=== PATIENT | male | born 1945 | race Caucasian/White ===

== ENCOUNTER → 2024-01-10 | Outpatient (CLI) | payer MEDICARE, SELFPAY ==
[2024-01-10 16:40] LABS: Absolute Lymphocyte Count 2.73 X10^3/uL (0.83-4.51); Absolute Neutrophil Count 5.3 X10^3/uL (2.0-7.7); Basophil# 0.06 X10^3/uL; Basophil% 0.6 % (0-1); Eosinophil# 0.71 X10^3/uL; Eosinophils% 7.4 % (0-5); Hematocrit 41.3 % (40-54); Lymphocyte # 2.73 X10^3/ul (0.83-4.51); Lymphocyte % 28.4 % (19-41); Mean Corp Hgb Conc 31.5 g/dL (32-36); Mean Platelet Vol. 9.6 fl (6.2-12.0); Monocyte% 8.3 % (0-10); NRBC Flagged by Analyzer 0 % (0-5); Neutrophil # 5.27 X10^3/uL (2.7-7.7); Platelet Count 297 K/mm3 (150-450); RBC Distribution Width CV 12.9 % (11.6-14.6); RBC Distribution Width SD 43.4 fl (35.1-43.9); Red Blood Count 4.49 M/mm3 (4.6-6.2); White Blood Count 9.6 K/mm3 (4.4-11.0)
[2024-01-10 16:56] LABS: AST(SGOT) 18 U/L (15-37); Alanine Aminotransfer ALT/SGPT 34 U/L (16-61); Albumin, Serum 3.5 g/dL (3.2-5.0); Alkaline Phosphatase 65 U/L (45-117); Anion Gap 4 (5-15); BUN 18 mg/dL (7-18); BUN/Creat Ratio 21.8 RATIO (10-20); Calcium,Total 9.5 mg/dL (8.5-10.1); Chloride 104 mmol/L (98-107); Cholesterol 119 mg/dL (200); Creatinine, Serum 0.82 mg/dL (0.70-1.30); EST Glomerular Filtration Rate 96 mL/min (>60); Est Glom Filt Rate - Afr Amer 116 mL/min (>60); Globulin 3.4 g/dL (2.2-4.2); Glucose 120 mg/dL (74-106); High Density Lipoprotein 44 mg/dL; Protein, Total 6.9 g/dL (6.4-8.2); Sodium Level 139 mmol/L (136-145); Triglycerides 203 mg/dL; Very Low Density Lipoprotein 41 mg/dL (5-40)
== END | disposition home or self-care (01) ==
PROVIDERS: PCP Internal Medicine; Referring Provider Internal Medicine; Visit Provider Internal Medicine
DX: I10 Essential (primary) hypertension (principal)
CPT/HCPCS: 36415; 80053; 80061; 85025

== ENCOUNTER → 2024-02-25 | Outpatient (CLI) | payer MEDICARE, SELFPAY ==
[2024-02-25 13:23] LABS: PSA,Total- Diagnostic 0.35 ng/mL (0.0-4.0)
== END | disposition home or self-care (01) ==
LOC: BIMLAB 09:38
PROVIDERS: PCP Internal Medicine
DX: C61 Malignant neoplasm of prostate (principal)
CPT/HCPCS: 36415; 84153

== ENCOUNTER 2024-02-28 22:02 | Inpatient (IN) | payer MEDICARE, SELFPAY ==
[2024-02-28 22:03] VITALS: BP 146/67; PULSE 87; RESP 18; TEMP 37.1; O2SAT 94; BMI 30.4
--- NOTE | 2024-02-28 22:20 | US_ITS ---
EXAM: US ABDOMEN LIMITED, RIGHT UPPER QUADRANT CLINICAL INDICATION: PAIN, n/v TECHNIQUE: Real-time ultrasound of the right upper quadrant with image documentation. COMPARISON: No relevant prior studies available. FINDINGS: LIVER: Increased echogenicity of the hepatic parenchyma. No focal lesions identified. No intrahepatic biliary ductal dilation. GALLBLADDER: Multiple shadowing stones in the gallbladder, with gallbladder distention up to 11.3 cm and a positive sonographic Brown sign. Trace amount of pericholecystic fluid. No gallbladder wall thickening is demonstrated. COMMON BILE DUCT: 7 mm. The proximal common bile duct is within normal limits for the patient''s age. PANCREAS: The pancreas is partially obscured by bowel gas. RIGHT KIDNEY: 7 mm echogenic shadowing focus in the right kidney likely indicating a nonobstructing stone. Simple cyst in the right kidney measuring 2.3 cm. No follow-up imaging is recommended per consensus recommendations based on imaging criteria. US/Gallbladder IMPRESSION: Multiple shadowing stones in the gallbladder, with gallbladder distention up to 11.3 cm and a positive sonographic Brown sign. Trace amount of pericholecystic fluid. Findings are concerning for acute cholecystitis. Electronically Signed: Syed Payton MD at 0:03 EST ,
--- NOTE | 2024-02-28 22:21 | EDS_ITS ---
HPI HPI - GI History of Present Illness Chief Complaint: Abd Pain Informant: patient and family Narrative Narrative: 78-year-old male has been having abdominal pain since 24 hours ago or a little more, said very poor appetite as a result, some occasional nausea/vomiting without hematemesis or coffee-ground emesis. Small bowel movements when he has them and they are unremarkable otherwise. No blood or melena. No fevers or chills. No chest discomfort. The pain radiates into his right mid back at times. He saw his doctor today and had blood work and a KUB and some Zofran but he is very uncomfortable. Pain was the first symptom. He has had no history of abdominal surgeries. [facility] Medical History DDD (degenerative disc disease) BPH (benign prostatic hyperplasia) Vitamin B12 deficiency Chronic diastolic heart failure History of prostate cancer Type 2 diabetes mellitus Numbness and tingling in right hand CAD (coronary artery disease) History of prostate disorder High cholesterol Hypertension Heart disease Diabetes Home Medications ?Medication ?Instructions ?Recorded ?Last Taken ?Type aspirin 81 mg chewable tablet 81 mg PO QDAY 01/10/24 Unknown History atorvastatin 40 mg tablet 80 mg PO QHS 01/10/24 Unknown History cholecalciferol (vitamin D3) 62.5 mcg PO DAILY 01/10/24 Unknown History mcg (2,500 unit) capsule clopidogrel 75 mg tablet 75 mg PO .three times/week 01/10/24 Unknown History furosemide 20 mg tablet 20 mg PO .three times/week 01/10/24 Unknown History glipizide 2.5 mg tablet 2.5 mg PO QDAY 01/10/24 Unknown History metformin 500 mg tablet 1,000 mg PO BID 01/10/24 Unknown History metoprolol succinate 25 mg 25 mg PO QDAY 01/10/24 Unknown History tablet,extended release 24 hr nitroglycerin 0.3 mg sublingual 0.3 mg sublingual Q5-15M PRN chest 01/10/24 Unknown Rx tablet pain #90 tabs potassium chloride 20 mEq 20 meq PO .three times/week 01/10/24 Unknown History tablet,extended release tamsulosin 0.4 mg capsule 0.4 mg PO QHS 01/10/24 Unknown History benazepril 5 mg tablet 5 mg PO QDAY #90 tabs 02/25/24 Unknown Rx ondansetron 4 mg disintegrating 4 mg PO Q6H #10 tabs 02/28/24 Unknown Rx tablet Allergy/AdvReac Type Severity Reaction Status Date / Time No Known Allergies Allergy Verified 02/28/24 22:03 Surgical History History of intravascular stent placement Social History household members: spouse housing: house Smoking Status: Never smoker alcohol intake: former substance use type: does not use what type of physical activity do you participate in: other details: ACTIVE AT HOME ON FARM seatbelt use: always do you feel safe at home: Yes ROS ROS ED Constitutional Constitutional ED: Reports malaise; Denies chills or fever(s) Eyes Eyes: Denies change in vision or diplopia ENT ENT ED: Denies rhinorrhea or sore throat Cardiovascular Cardiovascular: Denies chest pain or palpitations Respiratory/Chest Respiratory/Chest: Denies cough or dyspnea Gastrointestinal Gastrointestinal: Reports abdominal pain, nausea and vomiting; Denies diarrhea or melena Genitourinary Genitourinary ED: Denies dysuria or hematuria Musculoskeletal Musculoskeletal: Reports back pain; Denies neck pain Integumentary Denies abscess or rash Neurologic Neurologic: Denies headache(s), paresthesias or weakness Psychiatric Psychiatric: Denies anxiety or suicidal thoughts EXAM Physical Exam Const Vital Signs: 02/28/24 22:03 Temperature 98.8 F Temperature Source Temporal Pulse Rate 87 Respiratory Rate 18 Blood Pressure 146/67 H Blood Pressure Mean 93 Pulse Ox 94 Oxygen Delivery Method Room Air Positive well nourished and well developed General Appearance ED: well developed and NAD HEENT Reports moist mucous membranes normocephalic and atraumatic Eyes PERRL and EOMs intact bilaterally Neck full ROM and supple Resp normal respiratory effort and clear to auscultation bilaterally Cardio regular rate, regular rhythm and no murmurs GI non-distended GI Narrative: Very tender throughout the right upper quadrant with a positive Brown. Tenderness decreases as I get further away from the right upper quadrant, the left lower quadrant is nontender. He does not have a surgical abdomen. Auscultation: normoactive bowel sounds Palpation: soft Back/Spine no CVA tenderness General Back: other FROM Extremity normal to inspection General Extremety ED: Negative for edema, pulses abnormal or tenderness General Extremity: Negative for edema or pulses abnormal Neuro oriented x3, CN's II-XII intact bilaterally and no sensory deficits noted Sensorium / Orientation: awake and alert Motor Exam: strength 5/5 throughout Psych mental status grossly normal and thought process normal Skin no rashes or lesions noted and no wounds MDM MDM MDM Narrative Medical decision making narrative: Patient had outpatient labs earlier today, less than 12 hours ago. His total bilirubin is elevated compared with his baseline couple months ago, and he has a significant leukocytosis over 22. The rest of his liver enzymes are unremarkable. I am adding a lipase since it was not done but I do not think those need to be emergently repeated. This is highly suspicious for acute cholecystitis so I am obtaining an ultrasound while we treat his symptoms. Patient is doing little better after IV fluids, Zofran, morphine. I reviewed the ultrasound images and the results which I agree with, it is consistent with calculus cholecystitis. Started on Zosyn. Discussed with surgery. Patient clinically and hemodynamically stable right now does not require ICU. History & Record Review Additional record(s) reviewed:: Prior labs Lab Data Attestation: I reviewed the patient's lab results. Labs: Laboratory Results - last 24 hr 02/28/24 22:33 Lipase 13 Radiography Diagnostic Testing: Clinical Impression(s) from Imaging Studies Gallbladder Ultrasound 02/28/24 22:20 IMPRESSION: Multiple shadowing stones in the gallbladder, with gallbladder distention up to 11.3 cm and a positive sonographic Brown sign. Trace amount of pericholecystic fluid. Findings are concerning for acute cholecystitis. Electronically Signed: Syed Payton MD at 0:03 EST , Management Discussion w/another healthcare provider: [employer] (dr. iniguez, gen surgery) Discharge Plan Dx/Rx/DC Orders Clinical Impression: Calculus of gallbladder with acute cholecystitis Disposition Disposition: [facility] ([facility] Care [facility]
[2024-02-28 22:56] LABS: Lipase 13 U/L (13-75)
[2024-02-28] MEDS: Morphine 4 MG/ML Syringe IV (23:40)
[2024-02-28] MEDS: Ondansetron 4 MG/2 ML Vial IV (23:40)
[2024-02-29] VITALS (19 sets, daily range): BP systolic 112–145; BP diastolic 54–111; PULSE 68–90; RESP 16–20; TEMP 36.7–38.1; O2SAT 91–98; BMI 30.2
[2024-02-29] MEDS: Piperacil/Tazobactam 3.375 GM in 0.9% Normal Saline (50mL MB+) 50 ML IV ×4 (01:19→22:22)
[2024-02-29] MEDS: fentaNYL 100 MCG/2 ML Ampul 25 MCG IV (01:19)
[2024-02-29] MEDS: 0.9% Normal Saline (1000mL) 1,000 ML 100 ML IV ×2 (02:42→13:25)
[2024-02-29] MEDS: 0.9% Saline Lock 10 ML Syringe IV ×2 (02:43→19:18)
[2024-02-29] MEDS: Morphine 4 MG/ML Syringe IV (02:43)
[2024-02-29 03:09] LABS: Bedside Glucose 161 mg/dL (74-106)
--- NOTE | 2024-02-29 05:00 | EKG12_ITS ---
Test Reason : AM EKG Blood Pressure : */* mmHG Vent. Rate : 93 BPM Atrial Rate : 93 BPM P-R Int : 190 ms QRS Dur : 148 ms QT Int : 398 ms P-R-T Axes : 32 -42 99 degrees QTcB Int : 494 ms Normal sinus rhythm Left axis deviation Left bundle branch block Abnormal ECG No previous ECGs available Confirmed by RAJAT MONTANO, RUPINDER ([id number]), editor managing newspaper SHEREEN NAZARIO ([id number]) on 02/29/2024 9:57:15 AM Referred By: BARRY Confirmed By: RUPINDER EALR MD
[2024-02-29 05:57] LABS: Hematocrit 37.4 % (40-54); Hemoglobin 12.4 g/dL (13.0-16.5); Mean Corp Hgb Conc 33.2 g/dL (32-36); Mean Corpuscular Hgb 29.4 pg (27.0-32.0); Mean Corpuscular Volume 88.6 fL (80-94); Mean Platelet Vol. 9.1 fl (6.2-12.0); POSITIVE DIFFERENTIAL YES; POSITIVE MORPHOLOGY YES; Platelet Count 245 K/mm3 (150-450); RBC Distribution Width CV 12.7 % (11.6-14.6); RBC Distribution Width SD 40.7 fl (35.1-43.9); Red Blood Count 4.22 M/mm3 (4.6-6.2); White Blood Count 22.6 K/mm3 (4.4-11.0)
[2024-02-29 06:47] LABS: Differential Indicated MANUAL DIFF
[2024-02-29] MEDS: 0.9% Normal Saline (100mL Bag) 100 ML 15 ML IV (06:48)
[2024-02-29 06:49] LABS: Lymphocyte 7 % (19-41); Metamyelocyte 3 % (0-1); Monocyte 6 % (0-10); Neutrophil-Band 5 % (0-5); Neutrophil-Segmented 79 % (47-70); Total Cells Counted 100 (MANUAL DIFF)
[2024-02-29 06:50] LABS: Anisocytosis 1+; Macrocytosis 1+; Platelet Estimate ADEQUATE (ADEQ)
[2024-02-29 06:51] LABS: Absolute Lymphocyte Count 1.59 X10^3/uL (0.83-4.51); Scan Smear per Review Criteria MANUAL DIFF
[2024-02-29 06:54] LABS: Anion Gap 6 (5-15); BUN 12 mg/dL (7-18); BUN/Creat Ratio 15.3 RATIO (10-20); Calcium,Total 8.6 mg/dL (8.5-10.1); Chloride 102 mmol/L (98-107); Creatinine, Serum 0.79 mg/dL (0.70-1.30); EST Glomerular Filtration Rate 101 mL/min (>60); Est Glom Filt Rate - Afr Amer 122 mL/min (>60); Estimated Creatinine Clearance 86.88 ml/min; Glucose 137 mg/dL (74-106); Potassium 3.5 mmol/L (3.5-5.1); Sodium Level 136 mmol/L (136-145)
[2024-02-29 07:51] LABS: Hemoglobin A1c 6.3 % (3.8-5.6)
--- NOTE | 2024-02-29 09:40 | GALL_PTH ---
PATIENT: LAILA MCMANUS LOC: [facility] U#:[id number] AGE/SX: 78/M ROOM: NH316 RE02/29/[address]: Dr. Heladio Sears MD : 1945 BED: 1 DIS: 03/02/2024 SPEC #: [id number] RECD: 03/03/24 08:53 STATUS: ESTIVEN TORRES #: [id number] CAMILA: 02/29/24 09:[address]: Heladio Sears DEPT: SURGICAL PATHOLOGY RECD BY: Steffayn Wesley ENTERED: 03/03/24 12:45 SP TYPE: JANELLE VELAZQUEZ DR: Dr. Lorie Guzmán MD Tissues: Gallbladder, NOS Procedures: Surgery Specimen Level III HEADER OPERATION: Laparoscopic cholecystectomy with intraoperative cholangiogram PRE-OP DIAGNOSIS: Calculus of gallbladder with acute cholecystitis TISSUE SUBMITTED: Gallbladder MICROSCOPIC DIAGNOSIS Gallbladder, cholecystectomy: Acute and Chronic ulcerated and hemorrhagic cholecystitis and cholelithiasis. 03/04/2024 MICROSCOPIC DESCRIPTION Slides are reviewed. GROSS DESCRIPTION Received is one container labeled with the patient's name and designated gallbladder. The specimen consists of a gallbladder measuring 10 cm in length and up to 5.5 cm in diameter. The external surface is pink-garcia, smooth and glistening for the most part. Focally it is granular, hemorrhagic and contains cautery artifact. The gallbladder contains purulent and hemorrhagic bile and multiple black multifaced stones measuring in aggregate 5 x 4.5 x 1.0 cm and 0.3 to 0.6 cm in greatest dimension. The mucosa is bile-stained and without any mass lesions. The gallbladder wall measures up to 0.5 cm in thickness. [employer] sections from the gallbladder and the cystic duct are submitted in one cassette. / BALTAZAR:thee 03/03/24 TC:2 CPT: 28415
--- NOTE | 2024-02-29 10:26 | CASEMGMT ---
VINCENZO CHAUHAN Assessment: Face to Face with pt for initial transition planning/care coordination assessment. VINCENZO CHAUHAN introduced self and role at [facility], pt voices understanding and consents to assessment. Pt is A&O x4 and answers all questions appropriately at this time. Pt lying in bed in no distress with oxygen on. Care providers, pharmacy, and demographics verified/updated. Admitting Dx:cholecystitis Strata: 1 PCP:Arielle Specialists:Prudence, uro; [facility], cardio Preferred Pharmacy:[facility] Insurance:[employer] [facility] Prescription Benefit: yes LNOK:Nilam Vallejo, Living Arrangements: Pt lives with in a single story home with 2 steps to enter in the back with a rail and 3 in the front. Pt reports he is I in ADLs and denies concerns at home. Transportation: Pt drives self and denies concerns with transportation. DME:[facility] with sufficient supply of strips and lancets HHC/SNF:Has had [facility] in the past, denies SNF stays. Pt states no concerns with going home at time of dc. Pt states he is to have surgery today. Pt states no further concerns/needs. CM to follow. Advised pt to ask CM if any further question/concerns/needs arise, voices understanding. Pt Goal:Home Plan:Home Handoff given to [facility] VINCENZO CHAUHAN
--- NOTE | 2024-02-29 14:15 | NURSING ---
Pt to surgery via bed
--- NOTE | 2024-02-29 15:09 | PRE.ANES_ITS ---
ASA Classification* ASA Classification ASA Classification: 3 Assessment & Plan Anesthesia* Anesthesia Assessment Anesthesia Assessment: Discussed sedation and/or anesthesia options, risks, benefits, and alternatives with patient/parents/legal guardian/POA. Questions invited. The patient/parents/legal guardian/POA seems to understand and agrees to proceed with anesthesia plan. Reviewed the physical assessment, medical history, allergy history and patient home medications list prior to surgery/procedure/anesthetic and documented any changes. Performed airway and anesthesia risk assessments. Anesthesia Type Anesthesia Type: General History Source History Obtained from:: Patient and Chart Anesthesia Focused Assessment* Temperature: 100.5 F Pulse Rate: 88 Blood Pressure: 125/63 Respiratory Rate: 16 Pulse Ox: 94 Oxygen Delivery Method: Room Air Oxygen Flow Rate (L/min): 2 Airway Assessment Mouth opens: >3 cm Mallampati Score: I Teeth Condition: Intact Neck Range of motion (ROM): Limited ROM (Somewhat decreased extension) Focused Labs Anesthesia Preop lab: CBC WBC 22.6 K/mm3 (4.4-11.0) H 02/29/24 05:44 RBC 4.22 M/mm3 (4.6-6.2) L 02/29/24 05:44 Hgb 12.4 g/dL (13.0-16.5) L 02/29/24 05:44 Hct 37.4 % (40-54) L 02/29/24 05:44 Plt Count 245 K/mm3 (150-450) 02/29/24 05:44 CHEMISTRY Potassium 3.5 mmol/L (3.5-5.1) 02/29/24 05:44 Sodium 136 mmol/L (136-145) 02/29/24 05:44 BUN 12 mg/dL (7-18) 02/29/24 05:44 Creatinine 0.79 mg/dL (0.70-1.30) 02/29/24 05:44 Glucose 137 mg/dL (74-106) H 02/29/24 05:44 POC Glucose 161 mg/dL (74-106) H 02/29/24 02:50 COAG Pre-Assessment Diagnosis/Proposed Procedure Planned Operative Procedure(s): Laparoscopic cholecystectomy Anesthesia History Anesthesia History - director of strategic alliances: Anesthesia History - director of strategic alliances Hx Hospitalization Any Problems With Anesthesia Cholinesterase deficiency You/Your Family Experience fever (hyperthermia) with Relationship Recent Exposure to Contagious Disease Does patient have nerve stimulator Patient instructed to have device shut off --Does patient have Pacemaker or ICD? When Was Last Pacemaker Check QUESTION #4 FULL TEXT: You/Your Family Experience fever (hyperthermia) with Anesthesia Last Oral Intake Last Oral intake: Last Oral Intake NPO since Meds taken in AM with sips of water? Meds patient instructed to take am of surgery Any additional information?: Yes NPO since: 00:00 PONV PONV - director of strategic alliances: PONV - director of strategic alliances Female HX of Motion Sickness HX of N/V After Surgery Non-Smoker Duration of Surgery greater than 60 minutes Number of Risk Factors PONV Score Height & Weight Height & Weight: Anesthesia: Height & Weight Height 5 ft 10 in 02/29/24 01:56 Weight: 95.6 kg 02/29/24 01:56 Body Mass Index (BMI) 30.2 02/29/24 01:56 Respiratory Assessment Respiratory Assessment - director of strategic alliances: Respiratory Tract Infection Hx - director of strategic alliances Hx Respiratory Tract Infection Any additional information?: Yes Hx Respiratory Tract Infection: No STOP Sleep Apnea STOP Sleep Apnea - director of strategic alliances: STOP Sleep Apnea - director of strategic alliances Hx Hypertension Yes 02/29/24 01:56 Hx Sleep Apnea No 02/29/24 01:56 CPAP BIPAP Do you snore loudly (louder No 02/29/24 01:56 than talking or can be heard Do you often feel tired/ No 02/29/24 01:56 fatigued/ sleepy during daytime? Has anyone observed you stop No 02/29/24 01:56 breathing during sleep? STOP Results Negative 02/29/24 01:56 QUESTION #5 FULL TEXT : Do you snore loudly (louder than talking or can be heard through closed doors)? 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 Specify any problems Hx of Preganancy in last 3 N/A 02/29/24 01:56 Months Nurse Filling Out Transfusion ZEV7 02/29/24 01:56 & Questions: Date: 02/29/24 02/29/24 01:56 Time: 02:06 02/29/24 01:56 Patient unable to answer at this time (ie. confused, unrespo /Reproduction History /Reproductive History - director of strategic alliances: /Reproductive Hx- director of strategic alliances Hx Now Gestational Age (in weeks): EDC: Hx Hx Para Hx Section SAB Active Medications Active Medications: Current Medications Generic Name Dose Route Start Last Admin Trade Name Freq PRN Reason Stop Dose Admin Sodium Chloride 100 mls @ 15 mls/hr 02/29/24 01:57 02/29/24 06:52 IV 0 mls/hr .Q6H40M PRN Infusion Saline Flush Sodium Chloride 100 mls @ 15 mls/hr 02/29/24 01:57 IV .Q6H40M PRN Additional IVPB Infusion Sodium Chloride 1,000 mls @ 100 mls/hr 02/29/24 02:25 02/29/24 13:25 IV 02/29/24 22:24 100 mls/hr .Q10H SCOTT Administration Protocol Piperacillin Sod/Tazobactam 50 mls @ 12.5 mls/hr 02/29/24 06:00 02/29/24 13:26 Sod 3.375 gm/ Sodium Chloride IV 12.5 mls/hr Q8 SCOTT Administration Morphine Sulfate 2 - 4 mg 02/29/24 02:21 Morphine 2 Mg/Ml Syringe IV Q2H PRN PRN Pain Score 1-10 Morphine Sulfate 2 - 4 mg 02/29/24 02:35 02/29/24 02:43 Morphine 4 Mg/Ml Syringe IV 4 mg Q2H PRN PRN Administration Pain Score 1-10 Ondansetron HCl 4 mg 02/29/24 02:21 Ondansetron 4 Mg/2 Ml Vial IV Q6H PRN PRN NAUSEA Sodium Chloride 10 - 40 ml 02/29/24 01:57 02/29/24 02:43 0.9% Saline Lock 10 Ml Syringe IV 10 ml UD PRN Administration SALINE FLUSH PFSH Medical History (Updated 02/29/24 @ 15:[address] Ji Leos MD) Prostate CA DDD (degenerative disc disease) BPH (benign prostatic hyperplasia) Vitamin B12 deficiency Chronic diastolic heart failure History of prostate cancer Type 2 diabetes mellitus Numbness and tingling in right hand CAD (coronary artery disease) History of prostate disorder High cholesterol Hypertension Heart disease Diabetes Home Medications ?Medication ?Instructions ?Recorded ?Last Taken ?Type aspirin 81 mg chewable tablet 81 mg PO QDAY heart 01/10/24 02/28/24 History atorvastatin 40 mg tablet 80 mg PO QHS cholesterol 01/10/24 Unknown History cholecalciferol (vitamin D3) 62.5 2,500 mcg PO DAILY supplement 01/10/24 Unknown History mcg (2,500 unit) capsule clopidogrel 75 mg tablet 75 mg PO .three times/week blood 01/10/24 02/27/24 History thinner furosemide 20 mg tablet 20 mg PO .three times/week water 01/10/24 Unknown History pill glipizide 2.5 mg tablet 2.5 mg PO QDAY diabetes 01/10/24 Unknown History metformin 500 mg tablet 1,000 mg PO BID diabetes 01/10/24 Unknown History metoprolol succinate 25 mg 25 mg PO QDAY heart 01/10/24 Unknown History tablet,extended release 24 hr nitroglycerin 0.3 mg sublingual 0.3 mg sublingual Q5-15M PRN chest 01/10/24 U nknown Rx tablet pain #90 tabs potassium chloride 20 mEq 20 meq PO .three times/week 01/10/24 Unknown History tablet,extended release electrolytes tamsulosin 0.4 mg capsule 0.4 mg PO QHS prostate 01/10/24 Unknown History benazepril 5 mg tablet 5 mg PO QDAY blood pressure #90 02/25/24 Unknown Rx tabs ondansetron 4 mg disintegrating 4 mg PO Q6H nausea #10 tabs 02/28/24 Unknown Rx tablet Allergy/AdvReac Type Severity Reaction Status Date / Time No Known Allergies Allergy Verified 02/28/24 22:03 Surgical History History of intravascular stent placement Social History household members: spouse housing: house Smoking Status: Never smoker alcohol intake: former substance use type: does not use what type of physical activity do you participate in: other details: ACTIVE AT HOME ON FARM seatbelt use: always do you feel safe at home: Yes Review of Systems (Anesthesia) ROS Narrative System reviewed and no additional complaints, except as documented.
--- NOTE | 2024-02-29 15:45 | PCM.HP.STD ---
HPI - General General Date of Admission: 02/29/24 HPI Narrative LAILA MCMANUS, is a 78 M who presents with abdominal pain. The patient is having right upper quadrant pain. He reports this has been going on for 3 days. He does take aspirin and Plavix but he has not taken his Plavix in 2 days. Patient denies fevers or chills. He denies nausea or vomiting. [facility] Medical History (Updated 02/29/24 @ 15:[address] Heladio Sears MD) Prostate CA DDD (degenerative disc disease) BPH (benign prostatic hyperplasia) Vitamin B12 deficiency Chronic diastolic heart failure History of prostate cancer Type 2 diabetes mellitus Numbness and tingling in right hand CAD (coronary artery disease) History of prostate disorder High cholesterol Hypertension Heart disease Diabetes Home Medications ?Medication ?Instructions ?Recorded ?Last Taken ?Type aspirin 81 mg chewable tablet 81 mg PO QDAY heart 01/10/24 02/28/24 History atorvastatin 40 mg tablet 80 mg PO QHS cholesterol 01/10/24 Unknown History cholecalciferol (vitamin D3) 62.5 2,500 mcg PO DAILY supplement 01/10/24 Unknown History mcg (2,500 unit) capsule clopidogrel 75 mg tablet 75 mg PO .three times/week blood 01/10/24 02/27/24 History thinner furosemide 20 mg tablet 20 mg PO .three times/week water 01/10/24 Unknown History pill glipizide 2.5 mg tablet 2.5 mg PO QDAY diabetes 01/10/24 Unknown History metformin 500 mg tablet 1,000 mg PO BID diabetes 01/10/24 Unknown History metoprolol succinate 25 mg 25 mg PO QDAY heart 01/10/24 Unknown History tablet,extended release 24 hr nitroglycerin 0.3 mg sublingual 0.3 mg sublingual Q5-15M PRN chest 01/10/24 Unknown Rx tablet pain #90 tabs potassium chloride 20 mEq 20 meq PO .three times/week 01/10/24 Unknown History tablet,extended release electrolytes tamsulosin 0.4 mg capsule 0.4 mg PO QHS prostate 01/10/24 Unknown History benazepril 5 mg tablet 5 mg PO QDAY blood pressure #90 02/25/24 Unknown Rx tabs ondansetron 4 mg disintegrating 4 mg PO Q6H nausea #10 tabs 02/28/24 Unknown Rx tablet Allergy/AdvReac Type Severity Reaction Status Date / Time No Known Allergies Allergy Verified 02/28/24 22:03 Surgical History History of intravascular stent placement Social History household members: spouse housing: house Smoking Status: Never smoker alcohol intake: former substance use type: does not use what type of physical activity do you participate in: other details: ACTIVE AT HOME ON FARM seatbelt use: always do you feel safe at home: Yes ROS Constitutional Constitutional: Denies anorexia, chills, fatigue or fever(s) Eyes Eyes: Denies blurry vision ENT HEENT: Denies abnormal hearing Cardiovascular Cardiovascular: Denies chest pain Respiratory/Chest Respiratory/Chest: Denies cough or dyspnea Gastrointestinal Gastrointestinal: Reports abdominal pain; Denies constipation, nausea or vomiting Genitourinary Genitourinary: Denies difficulty urinating Musculoskeletal Musculoskeletal: Denies abnormal gait Integumentary Integumentary: Denies jaundice or new lesions Neurologic Neurologic: Denies abnormal gait Psychiatric Psychiatric: Denies anxiety Vital Signs Vital Signs Vital Signs: 02/28/24 22:03 02/29/24 00:03 02/29/24 01:29 Temperature 98.8 F 98.7 F Temperature Source Temporal Pulse Rate 87 76 68 Respiratory Rate 18 18 18 Respiratory Effort Respiratory Depth Respiratory Pattern Blood Pressure 146/67 H 132/66 H 145/69 H Blood Pressure Mean 93 88 94 Blood Pressure Source Blood Pressure Position Blood Pressure Location Pulse Ox 94 98 98 Oxygen Delivery Method Room Air Oxygen Flow Rate (L/min) 02/29/24 02:01 02/29/24 02:42 02/29/24 02:52 Temperature 98.1 F Temperature Source Oral Pulse Rate 90 86 Respiratory Rate 16 Respiratory Effort Normal Respiratory Depth Normal Respiratory Pattern Normal Blood Pressure 145/111 H 135/63 H Blood Pressure Mean 122 87 Blood Pressure Source Monitor Blood Pressure Position Semi-Fowlers Blood Pressure Location Right Arm Pulse Ox 95 Oxygen Delivery Method Room Air Room Air Oxygen Flow Rate (L/min) 02/29/24 08:47 02/29/24 08:47 02/29/24 11:22 Temperature 100.1 F H Temperature Source Temporal Pulse Rate 88 Respiratory Rate 16 Respiratory Effort Respiratory Depth Respiratory Pattern Blood Pressure 115/78 Blood Pressure Mean 90 Blood Pressure Source Monitor Blood Pressure Position Semi-Fowlers Blood Pressure Location Left Arm Pulse Ox 96 96 96 Oxygen Delivery Method Nasal Cannula Nasal Cannula Nasal Cannula Oxygen Flow Rate (L/min) 2 2 2 02/29/24 13:22 02/29/24 15:20 Temperature 100.5 F H 100.5 F H Temperature Source Temporal Pulse Rate 88 88 Respiratory Rate 16 16 Respiratory Effort Respiratory Depth Respiratory Pattern Blood Pressure 125/63 H 125/63 H Blood Pressure Mean 83 Blood Pressure Source Monitor Blood Pressure Position Semi-Fowlers Blood Pressure Location Left Arm Pulse Ox 94 94 Oxygen Delivery Method Nasal Cannula Room Air Oxygen Flow Rate (L/min) 2 2 Weight Weight: 210 lb 12.191 oz Body Mass Index (BMI) 30.2 Physical Exam Const oriented x3 and no apparent distress Resp normal respiratory effort Cardio regular rate and regular rhythm GI soft to palpation Palpation: tender RUQ Extremity normal to inspection Results Lab / Micro Data 02/29/24 05:44 02/29/24 05:44 Labs: Laboratory Results - last 24 hr 02/28/24 22:33: Lipase 13 02/29/24 02:50: POC Glucose 161 H 02/29/24 05:44: WBC 22.6 H, RBC 4.22 L, Hgb 12.4 L, Hct 37.4 L, MCV 88.6, MCH 29.4, MCHC 33.2, RDW Std Deviation 40.7, RDW Coeff of Darleen 12.7, Plt Count 245, MPV 9.1, Immature Gran % (Auto) ASSOCIATE MERCHANDISE PLANNER, Neut % (Auto) ASSOCIATE MERCHANDISE PLANNER, Lymph % (Auto) ASSOCIATE MERCHANDISE PLANNER, [place] % (Auto) ASSOCIATE MERCHANDISE PLANNER, Eos % (Auto) ASSOCIATE MERCHANDISE PLANNER, Baso % (Auto) ASSOCIATE MERCHANDISE PLANNER, Absolute Neuts (auto) 19.0 H, Absolute Lymphs (auto) 1.59, Total Counted 100, Neutrophils % (Manual) 79 H, Band Neutrophils % 5, Lymphocytes % (Manual) 7 L, Monocytes % (Manual) 6, Metamyelocytes % 3 H, Nucleated RBC % ASSOCIATE MERCHANDISE PLANNER, Diff Path Review May foll, Platelet Estimate ADEQUATE, Anisocytosis 1+, Macrocytosis 1+, Sodium 136, Potassium 3.5, Chloride 102, Carbon Dioxide 28.0, Anion Gap 6, BUN 12, Creatinine 0.79, Estim Creat Clear Calc 86.88, Est GFR (MDRD) Af Amer 122, Est GFR (MDRD) Non-Af 101, BUN/Creatinine Ratio 15.3, Glucose 137 H, Hemoglobin A1c 6.3 H, Calcium 8.6 Imaging Radiology Impression Gallbladder Ultrasound 02/28/24 22:20 IMPRESSION: Multiple shadowing stones in the gallbladder, with gallbladder distention up to 11.3 cm and a positive sonographic Brown sign. Trace amount of pericholecystic fluid. Findings are concerning for acute cholecystitis. Electronically Signed: Syed Payton MD at 0:03 EST , Assessment & Plan Assessment/Plan (1) Calculus of gallbladder with acute cholecystitis: QUALIFIERS: Biliary obstruction: without biliary obstruction Qualified Code(s): K80.00 - Calculus of gallbladder with acute cholecystitis without obstruction PLAN: The patient is having right upper quadrant pain and has a white count that is markedly elevated. He had an ultrasound of the gallbladder in the emergency room that showed multiple stones in the gallbladder as well as thickening and pericholecystic fluid. I recommended laparoscopic cholecystectomy. I discussed the procedure in detail with the patient. I discussed the risks, benefits, and alternatives of the procedure. I discussed the risks including but not limited to bleeding, infection, injury to surrounding organs such as the liver, bile duct, bowels. I did discuss the possibility of having to convert to an open procedure as well as the possibility that if any injuries occurred this may necessitate further surgery at a tertiary care center. Heladio Sears MD Pager: [facility] [address] [place] [address], [address] [place] [address] Office:
--- NOTE | 2024-02-29 16:35 | RAD_ITS ---
EXAM: [place] CHOLANGIOGRAPHY AND/OR PANCREATOGRAPHY CLINICAL INDICATION: TECHNIQUE: Fluoroscopic cine images of the upper abdomen obtained at the time of laparoscopic cholecystectomy with contrast injected via the cystic duct. COMPARISON: No relevant prior studies available. FINDINGS: Normal-appearing biliary tree. No filling defects to indicate retained stone. Contrast extravasates from the cystic duct. There is visualization of the duodenum. See operative note for additional information. RAD/Cholangiogram/ O R,Initial IMPRESSION: Normal common bile duct. As above. Electronically Signed: Magdiel Siddiqi MD at 10:18 EST ,
[2024-02-29] MEDS: Bupiv/Epi 0.25% 30 ML Vial (17:23)
--- NOTE | 2024-02-29 17:26 | PCM.OPRPT ---
Operative Report (Standard) Operative Information Date of Procedure: 02/29/24 Pre-Operative Diagnosis: Acute cholecystitis Post-Operative Diagnosis: Acute gangrenous cholecystitis Surgery/Procedure Performed: Laparoscopic cholecystectomy with cholangiograms systems qa analyst: Yes Political Reporter: Briseida Arias Tasks completed by assistant women's rowing coach: Opening, Closing and Retracting Type of Anesthesia: General/Regional RN Documented Start/Stop Times: Operation Date: 02/29/24 09:40 Case Time Into Pre-Op 02/29/24 14:30 Out of Pre-Op 02/29/24 16:07 Anesthesia Start 02/29/24 16:09 Into Room 02/29/24 16:09 Procedure Start 02/29/24 16:36 Procedure End 02/29/24 17:24 Procedure Start Time: 16:36 Procedure Stop Time: 17:24 Select all DRAINS/GRAFTS/IMPLANTS that apply: Drains Drain details: MICHAEL to bulb suction Estimated Blood Loss: 30 Specimen collected: Yes Description of specimen(s) removed: Gallbladder Description of surgery: After obtaining informed consent patient was brought back to the operating room. General anesthesia was induced. The abdomen was prepped and draped in usual sterile fashion. A small midline incision was made superior to the umbilicus and deepened to the level of fascia. The fascia was elevated and incised. Next the peritoneum was elevated and incised in the same fashion. Finger sweep was performed and the Mondragon trocar was placed into the abdomen. The balloon was inflated. The abdomen was inflated to 15 mmHg. Next a camera was introduced into the abdomen and the abdomen was inspected. Next under direct visualization three 5-mm ports were placed one subxiphoid and 2 subcostal. Next the gallbladder was elevated and retracted toward the right shoulder. The peritoneum was stripped from the gallbladder. The infundibulum was located and retracted laterally. Next the triangle of Calot was dissected and the cystic duct and cystic artery were identified. Cholangiograms were performed. The Hills clamp was used to clamp across the infundibulum and the catheter needle was inserted into the gallbladder. Under fluoroscopy contrast was instilled into the gallbladder and the common duct, cystic duct as well as proximal hepatic ducts were identified. There was good filling of the duodenum. There were no filling defects noted in the common bile duct. The clamp was removed as well as the needle and the infundibulum was grasped once more. Three hemolock clips were placed across the cystic duct. The cystic duct was then divided leaving 2 clips on the stump. The cystic artery was clipped and divided in the same fashion. The hook cautery was then used to take the gallbladder off of the gallbladder bed. Hemostasis was obtained. Gallbladder fossa was irrigated and no active bleeding or bile leakage was noted. Next the camera was introduced in the subxiphoid port. An Endopouch bag was placed through the umbilical port and the gallbladder was placed into it. The gallbladder was then removed through the umbilical incision. The camera was then reinserted through the umbilical port. There was significant oozing from the gallbladder fossa due to his anticoagulation. Argon beam coagulation as well as Heema blast were used to control the bleeding. The gallbladder fossa was inspected once more and noted to be hemostatic with no leaking bile. A drain was placed through the most lateral right upper quadrant incision and he was placed into the gallbladder fossa and tied to the skin using 3-0 nylon suture. The abdomen was suctioned dry. The 5 mm ports were removed under direct visualization. The umbilical port was then removed and the air was removed from the abdomen. Next using an 0 Vicryl suture the umbilical fascia was closed in a [id number] fashion. The umbilical port site was irrigated local anesthetic was administered to all the incisions. All the incisions were closed with interrupted subcuticular 4-0 Monocryl sutures followed by Steri-Strips and dressings. The patient was awoken and taken to PACU in stable condition. Surgical Findings: Gangrenous gallbladder with hydrops Complications Complications: No Admit VTE Documentation VTE Mechan Device Prophylaxis: SCD's
--- NOTE | 2024-02-29 17:36 | PCM.POST.ANE ---
Anesthesia: Postop Eval I Current Vital Signs Temperature: 99.3 F Pulse Rate: 78 Blood Pressure: 117/54 Respiratory Rate: 20 Pulse Ox: 92 Oxygen Delivery Method: Nasal Cannula Oxygen Flow Rate (L/min): 4 Assessment Airway patent: Yes Spontaneous unlabored respirations: Yes Mental status: Awake and Calm nausea: No Vomiting: No Anesthesia Complication: No Fluid Hydration Crystalloid volume administer (ml): 500 Total IV fluid infused: 500 Progress Note Anesthesia document: Postop Eval 1 completed: Yes
--- NOTE | 2024-02-29 18:40 | POSTOPAN2_ITS ---
Anesthesia Postop Eval I Sum Postop Eval Completion status Anesthesia document: Postop Eval 1 completed: Yes Anesthesia Postop Eval I Summary Anesthesia Postop Eval I Summary: Anesthesia Postop Eval I: Assessment Summary Airway patent Yes 02/29/24 17:36 [email or web address] Spontaneous unlabored Yes 02/29/24 17:36 TIPPLE [email or web address].MDOT respirations Mental status Awake,Calm 02/29/24 17:36 TIPPLE [email or web address].MDOT nausea No 02/29/24 17:36 TIPPLE [email or web address].MDOT Vomiting No 02/29/24 17:36 TIPPLE [email or web address] Anesthesia Postop Eval I: Fluid Summary Crystalloid volume administer 500 02/29/24 17:36 TIPPLE [email or web address].MDOT (ml) Colloids volume administered ( ml) Blood Product volume administered (ml) Total IV fluid infused 500 02/29/24 17:36 TIPPLE [email or web address] Anesthesia Postop Eval I: Summary Notes Anesthesia Complication No 02/29/24 17:36 TIPPLE [email or web address] Anesthesia Complication Comment: Post-operative progress note Anesthesia: Postop Eval II Evaluation Mental status: Awake and Calm Pain Level: 1 nausea: No Vomiting: No Complications Anesthesia Complication: No
--- NOTE | 2024-02-29 18:40 | PCM.POSTANE2 ---
Anesthesia Postop Eval I Sum Postop Eval Completion status Anesthesia document: Postop Eval 1 completed: Yes Anesthesia Postop Eval I Summary Anesthesia Postop Eval I Summary: Anesthesia Postop Eval I: Assessment Summary Airway patent Yes 02/29/24 17:36 [employer]ALL [employer].MDOT Spontaneous unlabored Yes 02/29/24 17:36 B[employer].MDOT respirations Mental status Awake,Calm 02/29/24 17:36 BASEB[employer].MDOT nausea No 02/29/24 17:36 BASEB[employer].MDOT Vomiting No 02/29/24 17:36 BASEBALL [employer].MDOT Anesthesia Postop Eval I: Fluid Summary Crystalloid volume administer 500 02/29/24 17:36 BASEBALL [employer].MDOT (ml) Colloids volume administered ( ml) Blood Product volume administered (ml) Total IV fluid infused 500 02/29/24 17:36 BASEB[employer].MDOT Anesthesia Postop Eval I: Summary Notes Anesthesia Complication No 02/29/24 17:36 BASEB[employer].MDOT Anesthesia Complication Comment: Post-operative progress note Anesthesia: Postop Eval II Evaluation Mental status: Awake and Calm Pain Level: 1 nausea: No Vomiting: No Complications Anesthesia Complication: No
[2024-02-29] MEDS: Morphine 2 MG/ML Syringe IV (19:01)
[2024-02-29] MEDS: Ondansetron 4 MG/2 ML Vial IV (19:18)
[2024-02-29] MEDS: Acetaminophen 325 MG Tablet 650 MG PO (20:36)
[2024-03-01] VITALS (7 sets, daily range): BP systolic 125–145; BP diastolic 60–71; PULSE 72–83; RESP 15–20; TEMP 36.1–36.8; O2SAT 89–96; BMI 30.2
[2024-03-01] MEDS: Acetaminophen 325 MG Tablet 650 MG PO ×3 (02:39→22:10)
[2024-03-01] MEDS: Piperacil/Tazobactam 3.375 GM in 0.9% Normal Saline (50mL MB+) 50 ML IV ×3 (05:32→22:04)
[2024-03-01] MEDS: oxyCODONE 5 MG Tablet PO (05:40)
[2024-03-01 10:54] LABS: Absolute Neutrophil Count 11.5 X10^3/uL (2.0-7.7); Basophil# 0.05 X10^3/uL; Basophil% 0.4 % (0-1); Eosinophil# 0.08 X10^3/uL; Eosinophils% 0.6 % (0-5); Hematocrit 38.8 % (40-54); Hemoglobin 12.7 g/dL (13.0-16.5); Lymphocyte % 10.1 % (19-41); Mean Corp Hgb Conc 32.7 g/dL (32-36); Mean Corpuscular Hgb 29.7 pg (27.0-32.0); Mean Corpuscular Volume 90.9 fL (80-94); Monocyte# 0.74 X10^3/uL; Monocyte% 5.3 % (0-10); NRBC Flagged by Analyzer 0 % (0-5); Neutrophil # 11.51 X10^3/uL (2.7-7.7); Neutrophil % 82.9 % (47-70); Platelet Count 223 K/mm3 (150-450); RBC Distribution Width SD 43.2 fl (35.1-43.9); Red Blood Count 4.27 M/mm3 (4.6-6.2); White Blood Count 13.9 K/mm3 (4.4-11.0)
[2024-03-01 11:19] LABS: ALB/GLOB Ratio 0.7 RATIO (0.9-2.4); AST(SGOT) 114 U/L (15-37); Alanine Aminotransfer ALT/SGPT 110 U/L (16-61); Albumin, Serum 2.6 g/dL (3.2-5.0); Alkaline Phosphatase 146 U/L (45-117); Anion Gap 6 (5-15); BUN 12 mg/dL (7-18); BUN/Creat Ratio 13.4 RATIO (10-20); Calcium,Total 8.4 mg/dL (8.5-10.1); Chloride 105 mmol/L (98-107); EST Glomerular Filtration Rate 87 mL/min (>60); Est Glom Filt Rate - Afr Amer 105 mL/min (>60); Estimated Creatinine Clearance 77.23 ml/min; Globulin 3.9 g/dL (2.2-4.2); Glucose 212 mg/dL (74-106); Potassium 3.2 mmol/L (3.5-5.1); Protein, Total 6.5 g/dL (6.4-8.2); Sodium Level 138 mmol/L (136-145)
--- NOTE | 2024-03-01 13:44 | PN.SURG_ITS ---
Subjective Subjective The patient is a 78-year-old male status post a laparoscopic cholecystectomy performed yesterday. He states that he is doing fairly well overall. He admits to incisional pain but otherwise has no complaints Objective Data Objective Data Vital Signs: Vital Signs Temp Pulse Resp BP Pulse Ox O2 Del Method O2 Flow Rate 97.7 F L 80 18 133/65 H 92 Room Air 2 03/01/24 08:00 03/01/24 08:00 03/01/24 08:00 03/01/24 08:00 03/01/24 08:00 03/01/24 08:00 03/01/24 02:34 Oxygen Flow Rate (L/min) 2 Oxygen Delivery Method Room Air Weight: 210 lb 12.191 oz Body Mass Index (BMI) 30.2 Intake & Output: Intake and Output for Last 24 Hours 02/28/24 02/29/24 03/01/24 23:59 23:59 23:59 Intake Total 1451 / 1451 1459.50 / 1459.50 Output Total 310 / 310 60 / 60 Balance 1141 / 1141 1399.50 / 1399.50 Lab / Micro Data 03/01/24 10:45 03/01/24 10:45 Labs: Laboratory Results - last 24 hr 03/01/24 10:45: WBC 13.9 H, RBC 4.27 L, Hgb 12.7 L, Hct 38.8 L, MCV 90.9, MCH 29.7, MCHC 32.7, RDW Std Deviation 43.2, RDW Coeff of Darleen 13.0, Plt Count 223, MPV 9.0, Immature Gran % (Auto) 0.700, Neut % (Auto) 82.9 H, Lymph % (Auto) 10.1 L, [place] % (Auto) 5.3, Eos % (Auto) 0.6, Baso % (Auto) 0.4, Absolute Neuts (auto) 11.5 H, Absolute Lymphs (auto) 1.40, Nucleated RBC % 0, Sodium 138, Potassium 3.2 L, Chloride 105, Carbon Dioxide 28.0, Anion Gap 6, BUN 12, Creatinine 0.90, Estim Creat Clear Calc 77.23, Est GFR (MDRD) Af Amer 105, Est GFR (MDRD) Non-Af 87, BUN/Creatinine Ratio 13.4, Glucose 212 H, Calcium 8.4 L, Total Bilirubin 2.80 H, AST 114 H, ALT 110 H, Alkaline Phosphatase 146 H, Total Protein 6.5, A lbumin 2.6 L, Globulin 3.9, Albumin/Globulin Ratio 0.7 L Radiography Diagnostic Testing: Radiology Impression Cholangiogram 02/29/24 16:35 IMPRESSION: Normal common bile duct. As above. Electronically Signed: Magdiel Siddiqi MD at 10:18 EST , Physical Exam Narrative He is alert and oriented x 3. No acute distress. Abdomen is soft and appropriately tender. Incisions are clean dry and intact. Assessment & Plan Assessment/Plan (1) Calculus of gallbladder with acute cholecystitis: QUALIFIERS: Biliary obstruction: without biliary obstruction Q ualified Code(s): K80.00 - Calculus of gallbladder with acute cholecystitis without obstruction PLAN: Plan The patient is a 78-year-old male postoperative day 1 from a laparoscopic cholecystectomy for acute cholecystitis/cholelithiasis. Repeat labs were performed today and his H&H remains stable. However, his bilirubin did go up. My plan is to repeat blood work again tomorrow. MICHAEL drain is putting out minimal serosanguineous output. Will probably DC drain at the time of discharge home
[2024-03-01] MEDS: 0.9% Saline Lock 10 ML Syringe IV ×2 (14:11→22:04)
[2024-03-02] MEDS: Piperacil/Tazobactam 3.375 GM in 0.9% Normal Saline (50mL MB+) 50 ML IV (05:19)
[2024-03-02 05:22] VITALS: BP 129/77; PULSE 70; RESP 16; TEMP 36.8; O2SAT 95
[2024-03-02 06:07] LABS: Absolute Lymphocyte Count 1.85 X10^3/uL (0.83-4.51); Absolute Neutrophil Count 8.9 X10^3/uL (2.0-7.7); Basophil# 0.06 X10^3/uL; Basophil% 0.5 % (0-1); Eosinophil# 0.39 X10^3/uL; Eosinophils% 3.2 % (0-5); Hematocrit 39.5 % (40-54); Hemoglobin 12.4 g/dL (13.0-16.5); Lymphocyte # 1.85 X10^3/ul (0.83-4.51); Lymphocyte % 15.3 % (19-41); Mean Corp Hgb Conc 31.4 g/dL (32-36); Mean Corpuscular Hgb 28.9 pg (27.0-32.0); Mean Corpuscular Volume 92.1 fL (80-94); Mean Platelet Vol. 9.1 fl (6.2-12.0); Monocyte# 0.81 X10^3/uL; Monocyte% 6.7 % (0-10); NRBC Flagged by Analyzer 0 % (0-5); Neutrophil % 73.8 % (47-70); Platelet Count 231 K/mm3 (150-450); RBC Distribution Width CV 12.8 % (11.6-14.6); RBC Distribution Width SD 43.3 fl (35.1-43.9); Red Blood Count 4.29 M/mm3 (4.6-6.2); White Blood Count 12.1 K/mm3 (4.4-11.0)
[2024-03-02 07:00] LABS: ALB/GLOB Ratio 0.6 RATIO (0.9-2.4); AST(SGOT) 54 U/L (15-37); Alanine Aminotransfer ALT/SGPT 95 U/L (16-61); Albumin, Serum 2.6 g/dL (3.2-5.0); Alkaline Phosphatase 139 U/L (45-117); Anion Gap 6 (5-15); BUN 11 mg/dL (7-18); BUN/Creat Ratio 12.1 RATIO (10-20); Calcium,Total 8.5 mg/dL (8.5-10.1); Chloride 105 mmol/L (98-107); Creatinine, Serum 0.91 mg/dL (0.70-1.30); EST Glomerular Filtration Rate 86 mL/min (>60); Est Glom Filt Rate - Afr Amer 104 mL/min (>60); Estimated Creatinine Clearance 76.38 ml/min; Globulin 4.1 g/dL (2.2-4.2); Glucose 144 mg/dL (74-106); Potassium 3.9 mmol/L (3.5-5.1); Protein, Total 6.7 g/dL (6.4-8.2); Sodium Level 139 mmol/L (136-145)
[2024-03-02 07:46] VITALS: BP 139/68; PULSE 66; RESP 16; TEMP 36.6; O2SAT 99
[2024-03-02] MEDS: Acetaminophen 325 MG Tablet 650 MG PO (10:46)
[2024-03-02 11:36] VITALS: O2SAT 90
--- NOTE | 2024-03-02 12:08 | PCM.PN.SRG ---
Subjective Subjective Patient is a 78-year-old male status post a recent laparoscopic cholecystectomy. He is doing well this morning. His biggest complaint is back pain secondary to the hospital bed. He states his abdomen is feeling good. He denies any severe pain. He has been tolerating diet and passing flatus. He has had minimal MICHAEL drainage output of a serosanguineous nature Objective Data Objective Data Vital Signs: Vital Signs Temp Pulse Resp BP Pulse Ox O2 Del Method O2 Flow Rate 97.9 F 66 16 139/68 H 99 Nasal Cannula 2 03/02/24 07:46 03/02/24 07:46 03/02/24 07:46 03/02/24 07:46 03/02/24 07:46 03/02/24 09:30 03/02/24 09:30 Oxygen Flow Rate (L/min) 2 Oxygen Delivery Method Nasal Cannula Weight: 210 lb 12.191 oz Body Mass Index (BMI) 30.2 Intake & Output: Intake and Output for Last 24 Hours 02/29/24 03/01/24 03/02/24 23:59 23:59 23:59 Intake Total 1451 / 1451 2209.50 / 2209.50 439.5 / 439.5 Output Total 310 / 310 335 / 335 Balance 1141 / 1141 1874.50 / 1874.50 419.5 / 419.5 Lab / Micro Data 03/02/24 05:54 03/02/24 05:54 Labs: Laboratory Results - last 24 hr 03/02/24 05:54: WBC 12.1 H, RBC 4.29 L, Hgb 12.4 L, Hct 39.5 L, MCV 92.1, MCH 28.9, MCHC 31.4 L, RDW Std Deviation 43.3, RDW Coeff of Darleen 12.8, Plt Count 231, MPV 9.1, Immature Gran % (Auto) 0.500, Neut % (Auto) 73.8 H, Lymph % (Auto) 15.3 L, [place] % (Auto) 6.7, Eos % (Auto) 3.2, Baso % (Auto) 0.5, Absolute Neuts (auto) 8.9 H, Absolute Lymphs (auto) 1.85, Nucleated RBC % 0, Sodium 139, Potassium 3.9, Chloride 105, Carbon Dioxide 28.0, Anion Gap 6, BUN 11, Creatinine 0.91, Estim Creat Clear Calc 76.38, Est GFR (MDRD) Af Amer 104, Est GFR (MDRD) Non-Af 86, BUN/Creatinine Ratio 12.1, Glucose 144 H, Calcium 8.5, Total Bilirubin 1.60 H, AST 54 H, ALT 95 H, Alkaline Phosphatase 139 H, Total Protein 6.7, Albumin 2.6 L, Globulin 4.1, Albumin/Globulin Ratio 0.6 L Physical Exam Narrative He is alert and oriented x 3. He is in no acute distress. Abdomen is soft and nondistended. Appropriate tenderness to palpation. MICHAEL drain with scant serosanguineous drainage. MICAHEL drain was easily removed at bedside as we anticipate discharge today Assessment & Plan Assessment/Plan (1) Calculus of gallbladder with acute cholecystitis: QUALIFIERS: Biliary obstruction: without biliary obstruction Qualified Code(s): K80.00 - Calculus of gallbladder with acute cholecystitis without obstruction PLAN: Plan The patient is a 78-year-old male status post a successful laparoscopic cholecystectomy for acute cholecystitis. He is doing well from a postoperative standpoint. Will plan for discharge this morning. Recommending follow-up in 2 weeks
--- NOTE | 2024-03-02 12:10 | PCM.DC.SUM ---
Providers Date of Admission: 02/29/24 Date of Discharge: 03/02/24 Primary Care Physician: Dr. Lorie Guzmán MD Reason For Visit: CHOLECYSTITIS Diagnosis Discharge Diagnosis (1) Calculus of gallbladder with acute cholecystitis: Status: Acute Code(s): K80.00 - Calculus of gallbladder with acute cholecystitis without obstruction Qualifiers: Biliary obstruction: without biliary obstruction Qualified Code(s): K80.00 - Calculus of gallbladder with acute cholecystitis without obstruction Plan The patient is a 78-year-old male status post a successful laparoscopic cholecystectomy for acute cholecystitis. He is doing well from a postoperative standpoint. Will plan for discharge this morning. Recommending follow-up in 2 weeks Medications at Discharge Home Medications aspirin 81 mg chewable tablet 81 mg PO QDAY heart 01/10/24 atorvastatin 40 mg tablet 80 mg PO QHS cholesterol 01/10/24 cholecalciferol (vitamin D3) 62.5 mcg (2,500 unit) capsule 2,500 mcg PO DAILY supplement 01/10/24 clopidogrel 75 mg tablet 75 mg PO .three times/week blood thinner 01/10/24 furosemide 20 mg tablet 20 mg PO .three times/week water pill 01/10/24 glipizide 2.5 mg tablet 2.5 mg PO QDAY diabetes 01/10/24 metformin 500 mg tablet 1,000 mg PO BID diabetes 01/10/24 metoprolol succinate 25 mg tablet,extended release 24 hr 25 mg PO QDAY heart 01/10/24 nitroglycerin 0.3 mg sublingual tablet 0.3 mg sublingual Q5-15M PRN chest pain #90 tabs 01/10/24 potassium chloride 20 mEq tablet,extended release 20 meq PO .three times/week electrolytes 01/10/24 tamsulosin 0.4 mg capsule 0.4 mg PO QHS prostate 01/10/24 benazepril 5 mg tablet 5 mg PO QDAY blood pressure #90 tabs 02/25/24 ondansetron 4 mg disintegrating tablet 4 mg PO Q6H nausea #10 tabs 02/28/24 Hospital Course Operations cholecystecomy Summary of Care Provided Minutes Spent on Discharge: 15 Hospital Course: The patient is a 78-year-old male who presented to [facility] emergency department with abdominal pain. Workup revealed acute cholecystitis. Patient was subsidy admitted with plans for laparoscopic cholecystectomy. This was performed successfully during his hospitalization. This was performed while he was on aspirin. He typically is on Plavix as well, patient did well postoperatively. He tolerated diet advancement and pain was well-controlled. Patient is hopeful for discharge later today Physical Exam Narrative He is alert and oriented x 3. He is in no acute distress. Abdomen is soft and appropriately tender. MICHAEL drain was putting out small amount of serosanguineous drainage. The MICHAEL drain was removed without difficulty today Weight / BMI Weight Weight: 210 lb 12.191 oz Body Mass Index (BMI) 30.2 ABG / Lab / Microbiology Data 03/02/24 05:54 03/02/24 05:54 Laboratory: Laboratory Results - last 24 hr 03/02/24 05:54: WBC 12.1 H, RBC 4.29 L, Hgb 12.4 L, Hct 39.5 L, MCV 92.1, MCH 28.9, MCHC 31.4 L, RDW Std Deviation 43.3, RDW Coeff of Darleen 12.8, Plt Count 231, MPV 9.1, Immature Gran % (Auto) 0.500, Neut % (Auto) 73.8 H, Lymph % (Auto) 15.3 L, [place] % (Auto) 6.7, Eos % (Auto) 3.2, Baso % (Auto) 0.5, Absolute Neuts (auto) 8.9 H, Absolute Lymphs (auto) 1.85, Nucleated RBC % 0, Sodium 139, Potassium 3.9, Chloride 105, Carbon Dioxide 28.0, Anion Gap 6, BUN 11, Creatinine 0.91, Estim Creat Clear Calc 76.38, Est GFR (MDRD) Af Amer 104, Est GFR (MDRD) Non-Af 86, BUN/Creatinine Ratio 12.1, Glucose 144 H, Calcium 8.5, Total Bilirubin 1.60 H, AST 54 H, ALT 95 H, Alkaline Phosphatase 139 H, Total Protein 6.7, Albumin 2.6 L, Globulin 4.1, Albumin/Globulin Ratio 0.6 L D/C Instructions Discharge Diet: Light diet - advance as tolerated Discharge Activity: May Shower May shower in (days): 1 Lifting Restrictions: Keep lifting under 20 pounds for about 3 to 4 weeks Call your doctor if your incision/area has: Continuous Slow Oozing, Sudden Increased Bleeding, Increased Pain/ Swelling, Increased Redness, Foul Smelling Discharge and Swelling at the incision site Call your doctor if you observe: Fever of 101 or Higher Remove Dressing in: 2 days Cleanse incision/area with: Soap & Water DC O2, CPAP, BIPAP Needs Home O2 Discharge instructions: No DC home with Oxygen: No Please Follow Up With: Heladio Sears MD When: 2 weeks Meaningful Use Info Meaningful Use Meaningful Use Diagnoses (Choose all that apply): None applicable Ischemic Stroke Statin Dosing Therapy Reference: STATIN DOSE THERAPY REFERENCE: * Patients > 75 years receive moderate or high dose statin therapy. * Patients 75 years or YOUNGER should receive HIGH intensity statin dose unless contraindicated. You will be required to document reason for non-treatment if statin daily dose does not meet guidelines. HIGH DOSE STATIN THERAPY DAILY Atorvastatin > than or = to 40 mg Rosuvastatin > than or = to 20 mg Amlodipine + Atorvastatin > than or = to 2.5/40 mg Ezetimibe + Simvastatin 10/80 mg Simvastatin 80mg Discharge Plan Admission Admit Date/Time: 02/29/24 02:20 Primary Reason for Your Visit: Acute cholecystitis Attending Provider: Heladio Sears Primary Care Provider: Lorie Guzmán Discharge Orders/Prescriptions Prescriptions: Continued tamsulosin 0.4 mg capsule 0.4 mg PO QHS potassium chloride 20 mEq tablet extended release 20 meq PO .three times/week Rx Instructions: Sunday, Sunday, Sunday furosemide 20 mg tablet 20 mg PO .three times/week Rx Instructions: Sunday, Sunday, Sunday metformin 500 mg tablet 1,000 mg PO BID aspirin 81 mg tablet,chewable 81 mg PO QDAY glipizide 2.5 mg tablet 2.5 mg PO QDAY metoprolol succinate 25 mg tablet extended release 24 hr 25 mg PO QDAY clopidogrel 75 mg tablet 75 mg PO .three times/week Rx Instructions: Sunday, Sunday, Sunday cholecalciferol (vitamin D3) 62.5 mcg (2,500 unit) capsule 2,500 mcg PO DAILY atorvastatin 40 mg tablet 80 mg PO QHS nitroglycerin 0.3 mg tablet, sublingual 0.3 mg sublingual Q5-15M PRN (Reason: chest pain) Qty: 90 3RF Rx Instructions: do not exceed 3 doses per episode ondansetron 4 mg tablet,disintegrating 4 mg PO Q6H Qty: 10 0RF benazepril 5 mg tablet 5 mg PO QDAY Qty: 90 2RF Referrals / Follow Up: Lorie Guzmán MD [Primary Care Provider] - Disposition Disposition (needs filled in before D/C Order can be placed): Home, Self Care Charges/Coding Visit Charges Inpatient E&M: 56664 Disch Hosp
[2024-03-04 10:19] LABS: Pathologist Review Reviewed
== END 2024-03-02 14:25 | disposition home or self-care (01) | DRG 418 ==
LOC: ED 02-29 00:19 → MS3 02-29 02:27
PROVIDERS: Anesthesiology; Surgery; Admitting Provider Surgery; Emergency Provider Emergency Medicine; PCP Internal Medicine; Visit Provider Surgery
PROC: 0FT44ZZ Resection of Gallbladder, Percutaneous Endoscopic Approach (ICD-10-PCS; CPT 47610; principal; 2024-02-29 09:20)
DX: K80.00 Calculus of gallbladder with acute cholecystitis without obstruction (principal); I50.32 Chronic diastolic (congestive) heart failure; K82.A1 Gangrene of gallbladder in cholecystitis; I11.0 Hypertensive heart disease with heart failure; E11.9 Type 2 diabetes mellitus without complications; I25.10 Atherosclerotic heart disease of native coronary artery without angina pectoris; E78.00 Pure hypercholesterolemia, unspecified; Z79.02 Long term (current) use of antithrombotics/antiplatelets; Z79.82 Long term (current) use of aspirin; Z79.84 Long term (current) use of oral hypoglycemic drugs; Z79.899 Other long term (current) drug therapy; Z85.46 Personal history of malignant neoplasm of prostate
CPT/HCPCS: 36415; 74018; 74300; 76000; 76705; 80048; 80053; 82962; 83036; 83690; 85025; 86140; 88304; 93005; 99284; J7030; A4216; J2405

== ENCOUNTER → 2024-02-28 | Outpatient (CLI) | payer MEDICARE, SELFPAY ==
--- NOTE | 2024-02-28 16:28 | RAD_ITS ---
EXAM: XR ABDOMEN, 1 VIEW CLINICAL INDICATION: abdominal pain / constipation -- flat plate TECHNIQUE: Frontal supine view of the abdomen/pelvis. COMPARISON: No relevant prior studies available. FINDINGS: LOWER THORAX: No acute pathology. GASTROINTESTINAL TRACT: Unremarkable. Non-obstructive. No bowel or stomach distention. ORGANS: Unremarkable as visualized. No organomegaly. No abnormal calcifications. BONES/JOINTS: No acute pathology. SOFT TISSUES: No acute pathology. RAD/Abdomen Single View IMPRESSION: Non-obstructive bowel gas pattern. Electronically Signed: Hector Felix MD at 23:57 EST ,
--- NOTE | 2024-02-28 16:28 | RAD_ITS ---
EXAM: XR ABDOMEN, 1 VIEW CLINICAL INDICATION: abdominal pain / constipation -- flat plate TECHNIQUE: Frontal supine view of the abdomen/pelvis. COMPARISON: No relevant prior studies available. FINDINGS: LOWER THORAX: No acute pathology. GASTROINTESTINAL TRACT: Unremarkable. Non-obstructive. No bowel or stomach distention. ORGANS: Unremarkable as visualized. No organomegaly. No abnormal calcifications. BONES/JOINTS: No acute pathology. SOFT TISSUES: No acute pathology. RAD/Abdomen Single View IMPRESSION: Non-obstructive bowel gas pattern. Electronically Signed: Hector Felix MD at 23:57 EST ,
[2024-02-28 16:41] LABS: Absolute Lymphocyte Count 1.61 X10^3/uL (0.83-4.51); Absolute Neutrophil Count 19.2 X10^3/uL (2.0-7.7); Basophil# 0.04 X10^3/uL; Basophil% 0.2 % (0-1); Hematocrit 42.7 % (40-54); Lymphocyte # 1.61 X10^3/ul (0.83-4.51); Lymphocyte % 7.1 % (19-41); Mean Corp Hgb Conc 32.8 g/dL (32-36); Mean Corpuscular Hgb 29.6 pg (27.0-32.0); Mean Corpuscular Volume 90.3 fL (80-94); Mean Platelet Vol. 9.4 fl (6.2-12.0); Monocyte# 1.57 X10^3/uL; NRBC Flagged by Analyzer 0 % (0-5); Neutrophil # 19.23 X10^3/uL (2.7-7.7); Neutrophil % 85.1 % (47-70); POSITIVE DIFFERENTIAL YES; Platelet Count 291 K/mm3 (150-450); RBC Distribution Width CV 12.4 % (11.6-14.6); Red Blood Count 4.73 M/mm3 (4.6-6.2); White Blood Count 22.6 K/mm3 (4.4-11.0)
[2024-02-28 16:44] LABS: Differential Indicated SCAN CRITERIA MET
[2024-02-28 17:03] LABS: ALB/GLOB Ratio 1.1 RATIO (0.9-2.4); AST(SGOT) 22 U/L (15-37); Alanine Aminotransfer ALT/SGPT 33 U/L (16-61); Albumin, Serum 3.8 g/dL (3.2-5.0); Alkaline Phosphatase 73 U/L (45-117); Anion Gap 7 (5-15); BUN 15 mg/dL (7-18); BUN/Creat Ratio 16.3 RATIO (10-20); Calcium,Total 9.6 mg/dL (8.5-10.1); Chloride 101 mmol/L (98-107); Creatinine, Serum 0.92 mg/dL (0.70-1.30); EST Glomerular Filtration Rate 84 mL/min (>60); Est Glom Filt Rate - Afr Amer 102 mL/min (>60); Globulin 3.5 g/dL (2.2-4.2); Glucose 164 mg/dL (74-106); Protein, Total 7.3 g/dL (6.4-8.2); Sodium Level 135 mmol/L (136-145)
[2024-02-28 17:05] LABS: Platelet Estimate ADEQUATE (ADEQ)
[2024-02-28 17:06] LABS: Anisocytosis RARE; Macrocytosis RARE; Ovalocyte RARE; Red Cell Morphology N CHROM NORMAL (NORM C&C)
[2024-02-29 13:59] LABS: Pathologist Review Reviewed
== END | disposition home or self-care (01) ==
PROVIDERS: PCP Internal Medicine; Referring Provider Physician Assistant; Visit Provider Physician Assistant
DX: R10.9 Unspecified abdominal pain (principal)
CPT/HCPCS: 36415; 74018; 80053; 85025; 86140

== ENCOUNTER → 2024-04-14 | Outpatient (CLI) | payer MEDICARE, SELFPAY ==
[2024-04-14 12:24] LABS: Absolute Lymphocyte Count 0.89 X10^3/uL (0.83-4.51); Absolute Neutrophil Count 3.3 X10^3/uL (2.0-7.7); Basophil# 0.05 X10^3/uL; Basophil% 1.1 % (0-1); Eosinophil# 0.03 X10^3/uL; Eosinophils% 0.7 % (0-5); Hemoglobin 14.4 g/dL (13.0-16.5); Lymphocyte # 0.89 X10^3/ul (0.83-4.51); Lymphocyte % 19.3 % (19-41); Mean Corp Hgb Conc 33.5 g/dL (32-36); Mean Corpuscular Hgb 29.1 pg (27.0-32.0); Mean Platelet Vol. 9.7 fl (6.2-12.0); Monocyte# 0.29 X10^3/uL; Monocyte% 6.3 % (0-10); NRBC Flagged by Analyzer 0 % (0-5); Neutrophil # 3.32 X10^3/uL (2.7-7.7); Neutrophil % 71.9 % (47-70); Platelet Count 211 K/mm3 (150-450); RBC Distribution Width CV 12.8 % (11.6-14.6); RBC Distribution Width SD 40.2 fl (35.1-43.9); Red Blood Count 4.94 M/mm3 (4.6-6.2); White Blood Count 4.6 K/mm3 (4.4-11.0)
[2024-04-14 12:38] LABS: ALB/GLOB Ratio 0.8 RATIO (0.9-2.4); AST(SGOT) 99 U/L (15-37); Alanine Aminotransfer ALT/SGPT 112 U/L (16-61); Albumin, Serum 3.4 g/dL (3.2-5.0); Alkaline Phosphatase 112 U/L (45-117); Anion Gap 9 (5-15); BUN 17 mg/dL (7-18); BUN/Creat Ratio 17.7 RATIO (10-20); Calcium,Total 9.6 mg/dL (8.5-10.1); Chloride 98 mmol/L (98-107); Creatinine, Serum 0.96 mg/dL (0.70-1.30); EST Glomerular Filtration Rate 80 mL/min (>60); Est Glom Filt Rate - Afr Amer 97 mL/min (>60); Globulin 4.2 g/dL (2.2-4.2); Glucose 158 mg/dL (74-106); Potassium 3.7 mmol/L (3.5-5.1); Protein, Total 7.6 g/dL (6.4-8.2); Sodium Level 134 mmol/L (136-145)
== END | disposition home or self-care (01) ==
LOC: BIMLAB 10:21
PROVIDERS: PCP Internal Medicine; Referring Provider Internal Medicine; Visit Provider Internal Medicine
DX: I10 Essential (primary) hypertension (principal); E11.9 Type 2 diabetes mellitus without complications
CPT/HCPCS: 36415; 80053; 83036; 85025

== ENCOUNTER → 2024-04-18 | Outpatient (CLI) | payer MEDICARE, SELFPAY | END | disposition home or self-care (01) | PROVIDERS: PCP Internal Medicine; Referring Provider Internal Medicine; Visit Provider Internal Medicine | DX: K52.9 Noninfective gastroenteritis and colitis, unspecified (principal) | CPT/HCPCS: 87493 ==

== ENCOUNTER → 2024-07-16 | Outpatient (CLI) | payer MEDICARE, SELFPAY ==
[2024-07-16 13:31] LABS: Anion Gap 11 (5-15); BUN 14 mg/dL (4-19); BUN/Creat Ratio 16.8 RATIO (10-20); Calcium,Total 9.9 mg/dL (7.6-11.0); Carbon Dioxide 27.1 mmol/L (21.0-32.0); Chloride 103 mmol/L (98-108); Creatinine, Serum 0.83 mg/dL (0.70-1.20); EST Glomerular Filtration Rate 89 (>60); Glucose 132 mg/dL (70-99); Potassium 4.2 mmol/L (3.3-5.1); Sodium Level 141 mmol/L (133-145)
== END | disposition home or self-care (01) ==
LOC: BIMLAB 10:34
PROVIDERS: PCP Internal Medicine; Referring Provider Internal Medicine; Visit Provider Internal Medicine
DX: I10 Essential (primary) hypertension (principal)
CPT/HCPCS: 36415; 80048

== ENCOUNTER → 2024-11-17 | Outpatient (CLI) | payer MEDICARE, SELFPAY ==
[2024-11-17 12:12] LABS: Hematocrit 41.5 % (40-54); Hemoglobin 13.5 g/dL (13.0-16.5); Immature Granulocytes Count 0.030 X10^3/uL (0.0-0.0); Mean Corp Hgb Conc 32.5 g/dL (32-36); Mean Corpuscular Volume 90.6 fL (80-94); Mean Platelet Vol. 10.0 fl (6.2-12.0); NRBC Flagged by Analyzer 0 % (0-5); Platelet Count 274 K/mm3 (150-450); RBC Distribution Width CV 12.7 % (11.6-14.6); RBC Distribution Width SD 41.3 fl (35.1-43.9); Red Blood Count 4.58 M/mm3 (4.6-6.2); White Blood Count 8.6 K/mm3 (4.4-11.0)
[2024-11-17 12:57] LABS: AST(SGOT) 27 U/L (<=37); Alanine Aminotransfer ALT/SGPT 33 U/L (<=46); Albumin, Serum 4.1 g/dL (3.4-4.8); Alkaline Phosphatase 67 U/L (40-129); Anion Gap 11 (5-15); BUN 14 mg/dL (4-19); BUN/Creat Ratio 17.5 RATIO (10-20); Calcium,Total 9.8 mg/dL (7.6-11.0); Carbon Dioxide 25.1 mmol/L (21.0-32.0); Chloride 103 mmol/L (98-108); Globulin 2.6 g/dL (2.2-4.2); Glucose 129 mg/dL (70-99); Potassium 4.1 mmol/L (3.3-5.1)
== END | disposition home or self-care (01) ==
LOC: BIMLAB 10:28
PROVIDERS: PCP Internal Medicine; Referring Provider Internal Medicine; Visit Provider Internal Medicine
DX: I10 Essential (primary) hypertension (principal)
CPT/HCPCS: 36415; 80053; 85025

== ENCOUNTER → 2025-02-26 | Outpatient (CLI) | payer MEDICARE, SELFPAY ==
[2025-02-26 11:57] LABS: PSA,Total - Annual Screen 0.42 ng/mL (0.02-4.00)
== END | disposition home or self-care (01) ==
LOC: LAB 10:24
PROVIDERS: PCP Internal Medicine
DX: Z12.5 Encounter for screening for malignant neoplasm of prostate (principal); C61 Malignant neoplasm of prostate
CPT/HCPCS: 36415; 84153; G0103